=== PATIENT | female | born 1960 | race Caucasian/White ===

== ENCOUNTER 2017-11-01 12:03 | Day surgery (SDC) | payer BC ==
[2017-11-01] MEDS ORDERED: DIAZEPAM 5 MG TAB ONE (12:19)
[2017-11-01] MEDS ORDERED: BUPIVACAINE HCL 0.25% MPF 10 ML SOL INFIL ONE (12:46)
[2017-11-01] MEDS ORDERED: DEXAMETHASONE SOD PHOS PF 10 MG/ML SOL IJ ONE (12:46)
[2017-11-01 13:06] VITALS: RESP 18
[2017-11-01 13:27] VITALS: BP 129/84; PULSE 86; TEMP 97.4; O2SAT 94
== END 2017-11-01 13:58 | disposition home or self-care (01) ==
LOC: SURG 12:03
PROVIDERS: ATTEND Nurse Anesthetist, Certified Registered
DX: M54.5 Low back pain (principal)
CPT/HCPCS: A9270-GY; J1100

== ENCOUNTER → 2017-12-06 | Day surgery (SDC) | payer BC ==
[2017-12-06 13:35] VITALS: BP 150/100; PULSE 84; RESP 16; TEMP 97.6; O2SAT 97
== END | disposition home or self-care (01) ==
LOC: SURG 13:16
PROVIDERS: ATTEND Nurse Anesthetist, Certified Registered
DX: M12.88 Other specific arthropathies, not elsewhere classified, other specified site (principal)